=== PATIENT | male | born 1945 | race Caucasian/White ===

== ENCOUNTER 2016-09-27 03:10 | Emergency (ER) | payer MEDICARE, OTHER ==
[~2016-09-27] VITALS: Ht 177.8 cm; Wt 99.0 kg
[2016-09-27 03:20] VITALS: BP 173/99; PULSE 56; RESP 20; TEMP 97.7; O2SAT 98
[2016-09-27] MEDS ORDERED: SODIUM CHLOR 0.9% 1000 ML INJ 1,000 ML IV SCH (03:31)
[2016-09-27] MEDS ORDERED: CHOL1CHW5 CHEW (03:33)
[2016-09-27] MEDS ORDERED: LOSA25TA PO (03:33)
[2016-09-27] MEDS ORDERED: ATOR40TA16 PO (03:33)
[2016-09-27] MEDS ORDERED: DOFE125 PO (03:33)
[2016-09-27] MEDS ORDERED: PRAD150C PO (03:33)
[2016-09-27] MEDS ORDERED: METO25TA3 PO (03:33)
[2016-09-27] MEDS ORDERED: ZOLP12.5 PO (03:33)
[2016-09-27] MEDS ORDERED: OMEP40CA2 PO (03:33)
[2016-09-27] MEDS ORDERED: DIGO0.12 PO (03:33)
[2016-09-27] MEDS ORDERED: VITA10002 PO (03:33)
[2016-09-27 03:34] VITALS: BP 173/99; PULSE 56; RESP 18; TEMP 97.7; O2SAT 98
--- NOTE | 2016-09-27 03:35 | PD ---
HPI Chief Complaint: Flank/Kidney Pain Time Seen by Provider: 03:28 Travel History International Travel<30 days: No Contact w/Intl Traveler<30days: No History of Present Illness HPI 71yo M with PMH of afib presents to the ED with c/o left flank pain since 11pm tonight. States pain is sharp, constant, radiates down left lower abdomen. + NBNB vomiting. +Dysuria. Denies any fever, chest pain, sob, hematuria, testicular pain or penile discharge. Denies history of kidney stones. PFSH Social History Tobacco Use: No Allergies-Medications (Allergen,Severity, Reaction): Coded Allergies: No Known Allergies (Unverified , 09/27/16) Reported Meds & Prescriptions Reported Meds & Active Scripts Active Zofran Odt (Ondansetron Odt) 4 Mg Tab 4 Mg SL Q8HR PRN Flomax (Tamsulosin HCl) 0.4 Mg Cap 0.4 Mg PO HS Percocet (Oxycodone-Acetaminophen) 5-325 mg Tab 1 Tab PO Q6H PRN Reported Vitamin D3 (Cholecalciferol) 2,000 Unit Chew 2,000 Units CHEW DAILY Losartan (Losartan Potassium) 25 Mg Tab 25 Mg PO DAILY Atorvastatin (Atorvastatin Calcium) 40 Mg Tab 40 Mg PO HS Zolpidem ER (Zolpidem Tartrate) 12.5 Mg Tab 12.5 Mg PO HS PRN Tikosyn (Dofetilide) 125 Mcg Cap 125 Mcg PO DAILY For Creatinine Clearance 20-39 mL/min Omeprazole 40 Mg Cap 40 Mg PO DAILY Vitamin B-12 (Cyanocobalamin) 1,000 Mcg Tab 1,000 Mcg PO DAILY Digoxin 0.125 Mg Tab 0.625 Mg PO DAILY Metoprolol Tartrate 25 Mg Tab 25 Mg PO BID Pradaxa (Dabigatran) 150 Mg Cap 150 Mg PO BID Review of Systems Except as stated in HPI: all other systems reviewed are Neg Physical Exam Narrative GENERAL: 71yo M in moderate distress. SKIN: Focused skin assessment warm/dry. HEAD: Atraumatic. Normocephalic. CARDIOVASCULAR: Regular rate and rhythm. No murmur appreciated. RESPIRATORY: No accessory muscle use. Clear to auscultation. Breath sounds equal bilaterally. GASTROINTESTINAL: Abdomen soft, +TTP LLQ. +TTP left flank. No rebound tenderness or guarding. BACK: MUSCULOSKELETAL: No obvious deformities. No clubbing. No cyanosis. No edema. NEUROLOGICAL: Awake and alert. No obvious cranial nerve deficits. Motor grossly within normal limits. Normal speech. PSYCHIATRIC: Appropriate mood and affect; insight and judgment normal. Data Data Last Documented VS Vital Signs Date Time Temp Pulse Resp B/P Pulse Ox O2 Delivery O2 Flow Rate FiO2 09/27/16 05:19 62 18 98 09/27/16 05:18 146/84 Room Air 09/27/16 03:34 97.7 Orders Complete Blood Count With Diff (09/27/16 03:31) Comprehensive Metabolic Panel (09/27/16 03:31) Lipase (09/27/16 03:31) Prothrombin Time / Inr (Pt) (09/27/16 03:31) Act Partial Throm Time (Ptt) (09/27/16 03:31) Urinalysis - C+S If Indicated (09/27/16 03:31) Ct Abd/Pel W/O Iv Contrast (09/27/16 03:31) Iv Access Insert/Monitor (09/27/16 03:31) Ecg Monitoring (09/27/16 03:31) Oximetry (09/27/16 03:31) Ondansetron Inj (Zofran Inj) (09/27/16 03:45) Sodium Chlor 0.9% 1000 Ml Inj (Ns 1000 M (09/27/16 03:31) Sodium Chloride 0.9% Flush (Ns Flush) (09/27/16 03:45) Ketorolac Inj (Toradol Inj) (09/27/16 03:45) Morphine Inj (Morphine Inj) (09/27/16 04:15) Labs Laboratory Tests Test 09/27/16 09/27/16 03:45 04:00 Urine Collection Type Urine Color YELLOW Urine Turbidity CLEAR Urine pH 5.5 Urine Specific [place] 1.026 Urine Protein 30 mg/dL Urine Glucose (UA) NEG mg/dL Urine Ketones TRACE mg/dL Urine Occult Blood LARGE Urine Nitrite NEG Urine Bilirubin NEG Urine Leukocyte Esterase NEG Urine RBC 15-19 /hpf Urine WBC 0-2 /hpf Urine Squamous Epithelial 0-5 /hpf Cells Urine Bacteria OCC /hpf Urine Mucus MOD /lpf Microscopic Urinalysis Comment CULT NOT INDICATED White Blood Count 8.1 TH/MM3 Red Blood Count 4.72 MIL/MM3 Hemoglobin 14.8 GM/DL Hematocrit 45.2 % Mean Corpuscular Volume 95.8 FL Mean Corpuscular Hemoglobin 31.5 PG Mean Corpuscular Hemoglobin 32.8 % Concent Red Cell Distribution Width 12.9 % Platelet Count 193 TH/MM3 Mean Platelet Volume 8.4 FL Neutrophils (%) (Auto) 80.7 % Lymphocytes (%) (Auto) 10.6 % Monocytes (%) (Auto) 5.6 % Eosinophils (%) (Auto) 2.2 % Basophils (%) (Auto) 0.9 % Neutrophils # (Auto) 6.4 TH/MM3 Lymphocytes # (Auto) 0.9 TH/MM3 Monocytes # (Auto) 0.5 TH/MM3 Eosinophils # (Auto) 0.2 TH/MM3 Basophils # (Auto) 0.1 TH/MM3 CBC Comment DIFF FINAL Differential Comment Prothrombin Time 11.1 SEC Prothromb Time International 1.0 RATIO Ratio Activated Partial 23.5 SEC Thromboplast Time Sodium Level 143 MEQ/L Potassium Level 4.0 MEQ/L Chloride Level 108 MEQ/L Carbon Dioxide Level 20.3 MEQ/L Anion Gap 15 MEQ/L Blood Urea Nitrogen 16 MG/DL Creatinine 1.10 MG/DL Estimat Glomerular Filtration 66 ML/MIN Rate Random Glucose 154 MG/DL Calcium Level 8.6 MG/DL Total Bilirubin 0.4 MG/DL Aspartate Amino Transf 21 U/L (AST/SGOT) Alanine Aminotransferase 30 U/L (ALT/SGPT) Alkaline Phosphatase 73 U/L Total Protein 7.4 GM/DL Albumin 3.8 GM/DL Lipase 113 U/L [facility] Medical Decision Making Medical Screen Exam Complete: Yes Emergency Medical Condition: Yes Interpretation(s) Last Impressions Abdomen/Pelvis CT 09/27/16 0331 Signed Impressions: Service Date/Time: Tuesday, September 27, 2016 03:35 - CONCLUSION: 1. 5 mm left ureterovesical junction stone with mild left hydronephrosis Marek Wright MD Differential Diagnosis Nephrolithiasis vs. pyelonephritis vs. diverticulitis Narrative Course 71yo M with symptoms consistent with nephrolithiasis. Labs reviewed, no leukocytosis. Creatinine normal at 1.10. Lipase normal. UA showed large blood. No leukocyte and no nitrite. Culture not indicated. CTa/p showed 5mm left ureterovesicular junction stone with mild left hydronephrosis. VS stable. Pt given toradol 30mg and morphine 6mg IV and pain is controlled. Zofran and IVF was also given and pt is no longer nauseous. Pt is to follow up with urology today. Return precautions given. Diagnosis Primary Impression: Nephrolithiasis Referrals: Geoff Francisco MD 1 day Left 5mm UVJ stone with mild hydro Patient Instructions: General Instructions Departure Forms: Tests/Procedures Additional Instructions: Please follow up with urology today. Return to the ED if symptoms worsen. Med/Other Pt SpecificInfo: Prescription(s) given Scripts Ondansetron Odt (Zofran Odt)4 Mg Tab4 Mg SL Q8HR PRN (Nausea/Vomiting) #6 TAB Ref 0 Prov:Rosy Jimenez DO 09/27/16 Tamsulosin (Flomax)0.4 Mg Cap0.4 Mg PO HS #6 CAP Ref 0 Prov:Rosy Jimenez DO 09/27/16 Oxycodone-Acetaminophen (Percocet)5-325 mg Tab1 Tab PO Q6H PRN (PAIN) #7 TAB Ref 0 Prov:Rosy Jimenez DO 09/27/16 Disposition: 01 DISCHARGE HOME Condition: Stable Rosy Jimenez DO September 27, 2016 03:35
[2016-09-27 03:37] VITALS: RESP 18; O2SAT 98
[2016-09-27] MEDS ORDERED: SODIUM CHLORIDE 0.9% FLUSH 10 ML FLUSH IV FLUSH PRN (03:45)
[2016-09-27] MEDS ORDERED: KETOROLAC TROMETHAMINE 30 MG/ML (IVP) VIAL IVP ONE (03:45)
[2016-09-27] MEDS ORDERED: ONDANSETRON HCL 4 MG/2 ML VIAL IVP ONE (03:45)
[2016-09-27 04:09] LABS: AUTOMATED NEUTROPHIL # 6.4 TH/MM3 (1.8-7.7); BASOPHIL # 0.1 TH/MM3 (0-0.2); BASOPHIL % 0.9 % (0.0-2.0); EOSINOPHIL # 0.2 TH/MM3 (0-0.4); EOSINOPHIL % 2.2 % (0.0-4.0); HEMATOCRIT 45.2 % (39.0-51.0); HEMO FLAGS DIFF FINAL; LYMPH % 10.6 % (9.0-44.0); LYMPHOCYTE # 0.9 TH/MM3 (1.0-4.8); MEAN CELL VOLUME 95.8 FL (80.0-100.0); MEAN CORPUSCULAR HEMOGLOBIN 31.5 PG (27.0-34.0); MEAN CORPUSCULAR HGB CONC 32.8 % (32.0-36.0); MONO % 5.6 % (0.0-8.0); NEUT % 80.7 % (16.0-70.0); PLATELET COUNT 193 TH/MM3 (150-450); RED BLOOD COUNT 4.72 MIL/MM3 (4.50-5.90); RED CELL DISTRIBUTION WIDTH 12.9 % (11.6-17.2); WHITE BLOOD COUNT 8.1 TH/MM3 (4.0-11.0)
[2016-09-27 04:11] LABS: BLOOD, URINE LARGE (NEG); GLUCOSE,URINE NEG (NEG); KETONE, URINE TRACE mg/dL (NEG); NITRITE,URINE NEG (NEG); PH, URINE 5.5 (5.0-8.5)
[2016-09-27] MEDS ORDERED: MORPHINE SULFATE 8 MG/ML INJ IV PUSH ONE (04:15)
[2016-09-27 04:20] VITALS: BP 142/88; PULSE 64; RESP 18; O2SAT 97
--- NOTE | 2016-09-27 04:24 | RADHPO ---
EXAM DATE/TIME: 09/27/2016 03:35 [facility] COMPARISON: No previous studies available for comparison. INDICATIONS : Left flank pain. ORAL CONTRAST: No oral contrast ingested. RADIATION DOSE: 23.93 CTDIvol (mGy) MEDICAL HISTORY : Hypertension. Cerebrovascular disease. SURGICAL HISTORY : Cholecystectomy. ENCOUNTER: Initial ACUITY: 1 day PAIN SCALE: 10/10 LOCATION: Left flank TECHNIQUE: Volumetric scanning of the abdomen and pelvis was performed. Using automated exposure control and ad justment of the mA and/or kV according to patient size, radiation dose was kept as low as reasonably achievable to obtain optimal diagnostic quality images. FINDINGS: Examination of the lung bases demonstrates no abnormality. No pleural fluid is identified. No pulmona ry nodules are present. Calcified granuloma is present in the right lung. The liver and spleen are no rmal in size and no focal defects are identified. The gallbladder is absent. The pancreas demonstrate s normal contour without evidence of mass or ductal dilatation. The adrenal glands are unremarkable. The right kidney is unremarkable. There is a 5 mm stone at the left ureterovesical junction with mild left hydronephrosis Examination of the pelvis demonstrates no evidence of free fluid or pelvic mass. No abnormally enlarg ed inguinal or retroperitoneal lymph nodes are present. The bladder is unremarkable. CONCLUSION: 1. 5 mm left ureterovesical junction stone with mild left hydronephrosis Marek Wright MD on September 27, 2016 at 4:17 Board Certified Radiologist. This report was verified electronically.
[2016-09-27 04:26] LABS: URINE COLOR YELLOW (YELLW/STRAW)
[2016-09-27 04:27] LABS: CHLORIDE 108 MEQ/L (98-107); SODIUM (NA) 143 MEQ/L (136-145)
[2016-09-27 04:28] LABS: MUCUS URINE MOD /lpf (OCC); RBC, URINE 15-19 /hpf (0-3)
[2016-09-27 04:29] LABS: SQUAMOUS EPITHELIAL CELL URINE 0-5 /hpf (0-5)
[2016-09-27 04:30] LABS: WBC, URINE 0-2 /hpf (0-5)
[2016-09-27 04:30] LABS: ANION GAP 15 MEQ/L (5-15); BICARBONATE 20.3 MEQ/L (21.0-32.0)
[2016-09-27 04:31] LABS: APTT (PATIENT) 23.5 SEC (24.3-30.1); BLOOD UREA NITROGEN 16 MG/DL (7-18); PROTHROMBIN TIME - PATIENT 11.1 SEC (9.8-11.6)
[2016-09-27 04:32] LABS: BACTERIA, URINE OCC /hpf; COMMENT (UR) CULT NOT INDICATED; CULTURE IF INDICATED CULT NOT INDICATED
[2016-09-27 04:33] LABS: ALT (GPT) 30 U/L (12-78); AST (GOT) 21 U/L (15-37); GLOMERULAR FILTRATION RATE 66 ML/MIN (>89)
[2016-09-27 04:35] LABS: TOTAL BILIRUBIN ADULT 0.4 MG/DL (0.2-1.0)
[2016-09-27 04:36] LABS: ALKALINE PHOSPHATASE 73 U/L (45-117)
[2016-09-27] MEDS ORDERED: PERC5TAB12 PO (04:47)
[2016-09-27] MEDS ORDERED: TAMS5CAP PO (04:47)
[2016-09-27] MEDS ORDERED: ZOFR4TAB3 SL (04:52)
[2016-09-27 05:18] VITALS: BP 146/84; PULSE 60; RESP 18; O2SAT 98
== END 2016-09-27 05:20 | disposition home or self-care (01) ==
LOC: PHED 03:10
DX: N13.2 Hydronephrosis with renal and ureteral calculous obstruction (principal)
CPT/HCPCS: 74176; 80053; 81001; 83690; 85025; 85610; 85730; 96361; 96374; 96375; 99284; J1885; J2270; J2405; J7030

== ENCOUNTER 2016-10-02 08:52 | Emergency (ER) | payer MEDICARE, OTHER ==
[~2016-10-02] VITALS: Ht 177.8 cm; Wt 97.2 kg
[~2016-10-02 08:52] MED LIST: ATOR40TA16 PO; CHOL1CHW5 CHEW; DIGO0.12 PO; DOFE125 PO; LOSA25TA PO; METO25TA3 PO; OMEP40CA2 PO; PERC5TAB12 PO; PRAD150C PO; TAMS5CAP PO; VITA10002 PO; ZOFR4TAB3 SL; ZOLP12.5 PO
[2016-10-02 08:53] VITALS: BP 162/80; PULSE 76; RESP 20; TEMP 97.8; O2SAT 98
[2016-10-02] MEDS ORDERED: SODIUM CHLOR 0.9% 1000 ML INJ 1,000 ML IV ONE (09:30)
--- NOTE | 2016-10-02 09:45 | PD ---
HPI Chief Complaint: Complaint Time Seen by Provider: 09:20 Travel History International Travel<30 days: No Contact w/Intl Traveler<30days: No Traveled to known affect area: No History of Present Illness HPI Patient is a 71-year-old male who presents to emergency room with complaints of hematuria which he noticed last night. Patient reports that he has history of kidney stones, reports that he was diagnosed with a 5 mm left-sided kidney stone one week ago. Patient reports that he is seeing Dr. Geoff macias with urology and is scheduled for lithotripsy versus stent placement versus a basket retrieval of kidney stone on Tuesday. Patient reports that last night, he noticed blood in his urine. That he urinated blood again today. Patient here for evaluation of hematuria. Patient reports that throughout the course of his kidney stone which he has been dealing with for the past week, he has not had hematuria. Patient reports that his pain is controlled at this time, he is taking Percocets at home for his pain. Patient currently is not on any antibiotics. Patient reports that he was on Pradaxa as he has history of CVA and PE, patient did stop taking his medications on in preparation for this surgery Tuesday. Patient with no fevers or chills, denies flank pain or abdominal pain. Patient with no other complaints. PFSH Past Medical History Hx Anticoagulant Therapy: Yes Atrial Fibrillation: Yes Heart Rhythm Problems: Yes Cardiac Catheterization: Yes Cardiovascular Problems: Yes High Cholesterol: Yes Cerebrovascular Accident: Yes Coronary Artery Disease: Yes Diminished Hearing: No Gastrointestinal Disorders: Yes GERD: Yes Hypertension: Yes Inguinal Hernia: Yes Musculoskeletal: Yes Past Surgical History Abdominal Surgery: Yes (hernia repair) Cholecystectomy: Yes Social History Alcohol Use: Yes (1oz daily) Tobacco Use: No Substance Use: No Allergies-Medications (Allergen,Severity, Reaction): Coded Allergies: No Known Allergies (Unverified , 09/27/16) Reported Meds & Prescriptions Reported Meds & Active Scripts Active Zofran Odt (Ondansetron Odt) 4 Mg Tab 4 Mg SL Q8HR PRN Flomax (Tamsulosin HCl) 0.4 Mg Cap 0.4 Mg PO HS Percocet (Oxycodone-Acetaminophen) 5-325 mg Tab 1 Tab PO Q6H PRN Reported Vitamin D3 (Cholecalciferol) 2,000 Unit Chew 2,000 Units CHEW DAILY Losartan (Losartan Potassium) 25 Mg Tab 25 Mg PO DAILY Atorvastatin (Atorvastatin Calcium) 40 Mg Tab 40 Mg PO HS Zolpidem ER (Zolpidem Tartrate) 12.5 Mg Tab 12.5 Mg PO HS PRN Tikosyn (Dofetilide) 125 Mcg Cap 125 Mcg PO DAILY For Creatinine Clearance 20-39 mL/min Omeprazole 40 Mg Cap 40 Mg PO DAILY Vitamin B-12 (Cyanocobalamin) 1,000 Mcg Tab 1,000 Mcg PO DAILY Digoxin 0.125 Mg Tab 0.625 Mg PO DAILY Metoprolol Tartrate 25 Mg Tab 25 Mg PO BID Pradaxa (Dabigatran) 150 Mg Cap 150 Mg PO BID Review of Systems General / Constitutional: No: Fever Eyes: No: Visual changes HENT: No: Headaches Cardiovascular: No: Chest Pain or Discomfort Respiratory: No: Shortness of Breath Gastrointestinal: No: Abdominal Pain Genitourinary: Positive: Hematuria, No: Dysuria Musculoskeletal: No: Pain Skin: No Rash Neurologic: No: Weakness Psychiatric: No: Depression Endocrine: No: Polydipsia Hematologic/Lymphatic: No: Easy Bruising Physical Exam Narrative GENERAL: No acute distress, nontoxic and evaluation SKIN: Focused skin assessment warm/dry. HEAD: Atraumatic. Normocephalic. EYES: Pupils equal and round. No scleral icterus. No injection or drainage. ENT: No nasal bleeding or discharge. Mucous membranes pink and moist. NECK: Trachea midline. No JVD. CARDIOVASCULAR: Regular rate and rhythm. No murmur appreciated. RESPIRATORY: No accessory muscle use. Clear to auscultation. Breath sounds equal bilaterally. GASTROINTESTINAL: Abdomen soft, non-tender, nondistended. Hepatic and splenic margins not palpable. MUSCULOSKELETAL: No obvious deformities. No clubbing. No cyanosis. No edema. NEUROLOGICAL: Awake and alert. No obvious cranial nerve deficits. Motor grossly within normal limits. Normal speech. PSYCHIATRIC: Appropriate mood and affect; insight and judgment normal. Data Data Last Documented VS Vital Signs Date Time Temp Pulse Resp B/P Pulse Ox O2 Delivery O2 Flow Rate FiO2 10/02/16 08:53 97.8 76 20 162/80 98 Room Air Orders Urinalysis - C+S If Indicated (10/02/16 09:03) Basic Metabolic Panel (Bmp) (10/02/16 09:26) Complete Blood Count With Diff (10/02/16 09:26) Prothrombin Time / Inr (Pt) (10/02/16 09:26) Act Partial Throm Time (Ptt) (10/02/16 09:26) Abdomen, Kub Only (10/02/16 09:26) Sodium Chlor 0.9% 1000 Ml Inj (Ns 1000 M (10/02/16 09:30) Urine Culture (10/02/16 09:30) Ceftriaxone Inj (Rocephin Inj) (10/02/16 10:45) Ct Abd/Pel W/O Iv Contrast (10/02/16 10:40) Labs Laboratory Tests Test 10/02/16 09:30 White Blood Count 5.3 TH/MM3 Red Blood Count 3.67 MIL/MM3 Hemoglobin 12.0 GM/DL Hematocrit 35.5 % Mean Corpuscular Volume 96.6 FL Mean Corpuscular Hemoglobin 32.7 PG Mean Corpuscular Hemoglobin 33.9 % Concent Red Cell Distribution Width 13.5 % Platelet Count 171 TH/MM3 Mean Platelet Volume 8.7 FL Neutrophils (%) (Auto) 65.1 % Lymphocytes (%) (Auto) 12.6 % Monocytes (%) (Auto) 15.7 % Eosinophils (%) (Auto) 6.2 % Basophils (%) (Auto) 0.4 % Neutrophils # (Auto) 3.5 TH/MM3 Lymphocytes # (Auto) 0.7 TH/MM3 Monocytes # (Auto) 0.8 TH/MM3 Eosinophils # (Auto) 0.3 TH/MM3 Basophils # (Auto) 0.0 TH/MM3 CBC Comment DIFF FINAL Differential Comment Prothrombin Time 11.2 SEC Prothromb Time International 1.0 RATIO Ratio Activated Partial 27.9 SEC Thromboplast Time Urine Color LIGHT-RED Urine Turbidity CLEAR Urine pH 6.0 Urine Specific [place] 1.027 Urine Protein 300 mg/dL Urine Glucose (UA) NEG mg/dL Urine Ketones 10 mg/dL Urine Occult Blood LARGE Urine Nitrite NEG Urine Bilirubin NEG Urine Urobilinogen 2.0 MG/DL Urine Leukocyte Esterase SMALL Urine RBC /hpf Urine WBC /hpf Urine WBC Clumps FEW Urine Mucus FEW /lpf Urine Yeast (Budding) FEW Microscopic Urinalysis Comment CULTURE INDICATED Sodium Level 140 MEQ/L Potassium Level 4.1 MEQ/L Chloride Level 108 MEQ/L Carbon Dioxide Level 24.0 MEQ/L Anion Gap 8 MEQ/L Blood Urea Nitrogen 18 MG/DL Creatinine 1.59 MG/DL Estimat Glomerular Filtration 43 ML/MIN Rate Random Glucose 113 MG/DL Calcium Level 8.5 MG/DL MDM Medical Decision Making Medical Screen Exam Complete: Yes Emergency Medical Condition: Yes Interpretation(s) Vital Signs Date Time Temp Pulse Resp B/P Pulse Ox O2 Delivery O2 Flow Rate FiO2 10/02/16 08:53 97.8 76 20 162/80 98 Room Air Differential Diagnosis Hematuria could be secondary to UTI, kidney stone, anemia Narrative Course Patient is a 71 year old male who presents to ER with c/o of hematuria. Patient was diagnosed with 5mm kidney stone last week - he is scheduled for litrotripsy vs basket retrieval vs stent on tuesday. Patient's only c/o is hematuria. Plan to obtain basic labs and ua. KUB ordered to evaluate stone. Vital Signs Date Time Temp Pulse Resp B/P Pulse Ox O2 Delivery O2 Flow Rate FiO2 10/02/16 08:53 97.8 76 20 162/80 98 Room Air Laboratory Tests Test 10/02/16 09:30 White Blood Count 5.3 TH/MM3 (4.0-11.0) Red Blood Count 3.67 MIL/MM3 (4.50-5.90) Hemoglobin 12.0 GM/DL (13.0-17.0) Hematocrit 35.5 % (39.0-51.0) Mean Corpuscular Volume 96.6 FL (80.0-100.0) Mean Corpuscular Hemoglobin 32.7 PG (27.0-34.0) Mean Corpuscular Hemoglobin 33.9 % Concent (32.0-36.0) Red Cell Distribution Width 13.5 % (11.6-17.2) Platelet Count 171 TH/MM3 (150-450) Mean Platelet Volume 8.7 FL (7.0-11.0) Neutrophils (%) (Auto) 65.1 % (16.0-70.0) Lymphocytes (%) (Auto) 12.6 % (9.0-44.0) Monocytes (%) (Auto) 15.7 % (0.0-8.0) Eosinophils (%) (Auto) 6.2 % (0.0-4.0) Basophils (%) (Auto) 0.4 % (0.0-2.0) Neutrophils # (Auto) 3.5 TH/MM3 (1.8-7.7) Lymphocytes # (Auto) 0.7 TH/MM3 (1.0-4.8) Monocytes # (Auto) 0.8 TH/MM3 (0-0.9) Eosinophils # (Auto) 0.3 TH/MM3 (0-0.4) Basophils # (Auto) 0.0 TH/MM3 (0-0.2) CBC Comment DIFF FINAL Differential Comment Prothrombin Time 11.2 SEC (9.8-11.6) Prothromb Time International 1.0 RATIO Ratio Activated Partial 27.9 SEC Thromboplast Time (24.3-30.1) Urine Color LIGHT-RED (YELLW/STRAW) Urine Turbidity CLEAR (CLEAR) Urine pH 6.0 (5.0-8.5) Urine Specific [place] 1.027 (1.002-1.035) Urine Protein 300 mg/dL (NEG-TRACE) Urine Glucose (UA) NEG mg/dL (NEG) Urine Ketones 10 mg/dL (NEG) Urine Occult Blood LARGE (NEG) Urine Nitrite NEG (NEG) Urine Bilirubin NEG (NEG) Urine Urobilinogen 2.0 MG/DL (LESS THAN 2.0) Urine Leukocyte Esterase SMALL (NEG) Urine RBC /hpf (0-3) Urine WBC /hpf (0-5) Urine WBC Clumps FEW (NONE) Urine Mucus FEW /lpf (OCC) Urine Yeast (Budding) FEW (NONE) Microscopic Urinalysis Comment CULTURE INDICATED Sodium Level 140 MEQ/L (136-145) Potassium Level 4.1 MEQ/L (3.5-5.1) Chloride Level 108 MEQ/L (98-107) Carbon Dioxide Level 24.0 MEQ/L (21.0-32.0) Anion Gap 8 MEQ/L (5-15) Blood Urea Nitrogen 18 MG/DL (7-18) Creatinine 1.59 MG/DL (0.60-1.30) Estimat Glomerular Filtration 43 ML/MIN (>89) Rate Random Glucose 113 MG/DL (74-106) Calcium Level 8.5 MG/DL (8.5-10.1) Last Impressions Abdomen/Pelvis CT 10/02/16 1040 Signed Impressions: Service Date/Time: Sunday, October 02, 2016 11:11 - CONCLUSION: 1. The previously noted distal left ureteral calculus at the level of the ureterovesicular junction is no longer present and has passed. 2. Inflammatory change is again noted surrounding the left kidney which remains prominent with mild to moderate hydronephrosis. No renal or ureteral calculi is now identified. Tha Bird MD Abdomen X-Ray 10/02/16 0926 Signed Impressions: Service Date/Time: Sunday, October 02, 2016 09:36 - CONCLUSION: 1. No renal or ureteral calculi. 2. Mildly nonspecific, nonobstructive bowel gas pattern which could represent a mild ileus. 3. Status post cholecystectomy. Tha Bird MD Patient was reevaluated, he is feeling much better at this time. Patient with resolution of flank pain. Patient reports that he just urinated, reports that his urine is now clear. Patient with most likely passed kidney stone at this time, patient does have a UTI, Patient will follow up with cultures from today. Patient will return to ER as needed. A copy of his studies were given to him and were reviewed in detail. Diagnosis Primary Impression: Hematuria Additional Impressions: UTI (urinary tract infection) Qualified Code: N30.01 - Acute cystitis with hematuria Hydronephrosis Qualified Code: N13.30 - Hydronephrosis, unspecified hydronephrosis type Renal insufficiency Patient Instructions: General Instructions Additional Instructions: Please return to ER as needed Please follow up with your urologist Please bring a copy of your discharge paper work and studies to your doctor's office Please drink plenty of fluids Please take all antibiotics as prescribed Follow up with cultures from today Med/Other Pt SpecificInfo: Prescription(s) given Scripts Nitrofurantoin Monohydrate Macrocrystals (Macrobid)100 Mg [id number] Mg PO BID 10 Days Ref 0 Prov:Charlotte Soto DO 10/02/16 Disposition: 01 DISCHARGE HOME Condition: Stable Charlotte Soto DO October 02, 2016 09:45
--- NOTE | 2016-10-02 09:47 | RADRPT ---
EXAM DATE/TIME: 10/02/2016 09:36 [facility] COMPARISON: No previous studies available for comparison. INDICATIONS : Left sided abdominal pain, Hematuria MEDICAL HISTORY : Hypertension. Cerebrovascular disease. SURGICAL HISTORY : Cholecystectomy. ENCOUNTER: Initial ACUITY: 4 - 6 days PAIN SCORE: 10/10 LOCATION: Left flank FINDINGS: 2 AP supine views of the abdomen were obtained. There are surgical clips in the right upper quadrant consistent with prior cholecystectomy. There are several loops of nondilated air-containing small bow el with gas and stool noted segments in the colon. There is no free air or mass effect. There are deg enerative disc changes in the lumbar spine. There are no renal or ureteral calculi. CONCLUSION: 1. No renal or ureteral calculi. 2. Mildly nonspecific, nonobstructive bowel gas pattern which could represent a mild ileus. 3. Status post cholecystectomy. Tha Bird MD on October 02, 2016 at 9:44 Board Certified Radiologist. This report was verified electronically.
[2016-10-02 10:13] LABS: AUTOMATED NEUTROPHIL # 3.5 TH/MM3 (1.8-7.7); BASOPHIL % 0.4 % (0.0-2.0); EOSINOPHIL # 0.3 TH/MM3 (0-0.4); EOSINOPHIL % 6.2 % (0.0-4.0); HEMATOCRIT 35.5 % (39.0-51.0); HEMO FLAGS DIFF FINAL; LYMPH % 12.6 % (9.0-44.0); LYMPHOCYTE # 0.7 TH/MM3 (1.0-4.8); MEAN CELL VOLUME 96.6 FL (80.0-100.0); MEAN CORPUSCULAR HEMOGLOBIN 32.7 PG (27.0-34.0); MEAN CORPUSCULAR HGB CONC 33.9 % (32.0-36.0); MONO % 15.7 % (0.0-8.0); NEUT % 65.1 % (16.0-70.0); PLATELET COUNT 171 TH/MM3 (150-450); RED BLOOD COUNT 3.67 MIL/MM3 (4.50-5.90); RED CELL DISTRIBUTION WIDTH 13.5 % (11.6-17.2); WHITE BLOOD COUNT 5.3 TH/MM3 (4.0-11.0)
[2016-10-02 10:20] LABS: APTT (PATIENT) 27.9 SEC (24.3-30.1); PROTHROMBIN TIME - PATIENT 11.2 SEC (9.8-11.6)
[2016-10-02 10:30] LABS: BLOOD, URINE LARGE (NEG); COMMENT (UR) CULTURE INDICATED; CULTURE IF INDICATED CULTURE INDICATED; GLUCOSE,URINE NEG (NEG); KETONE, URINE 10 mg/dL (NEG); MUCUS URINE FEW /lpf (OCC); NITRITE,URINE NEG (NEG)
[2016-10-02 10:31] LABS: URINE COLOR LIGHT-RED (YELLW/STRAW)
[2016-10-02 10:42] LABS: POTASSIUM 4.1 MEQ/L (3.5-5.1)
[2016-10-02] MEDS ORDERED: cefTRIAXone INJ 1,000 MG in SODIUM CHLORIDE 0.9% INJ 100 ML IV ONE (10:45)
--- NOTE | 2016-10-02 11:27 | RADRPT ---
EXAM DATE/TIME: 10/02/2016 11:11 [facility] COMPARISON: CT ABDOMEN & PELVIS W/O CONTRAST, September 27, 2016, 3:35. INDICATIONS : Left flank pain. A left distal ureteral calculus and hydronephrosis are present on prior CT 5 days ag o. ORAL CONTRAST: No oral contrast ingested. RADIATION DOSE: 8.74 CTDIvol (mGy) MEDICAL HISTORY : Renal calculi. SURGICAL HISTORY : Umbilical hernia repair. ENCOUNTER: Initial ACUITY: 1 day PAIN SCALE: 5/10 LOCATION: Left flank TECHNIQUE: Volumetric scanning of the abdomen and pelvis was performed. Using automated exposure control and ad justment of the mA and/or kV according to patient size, radiation dose was kept as low as reasonably achievable to obtain optimal diagnostic quality images. FINDINGS: LOWER LUNGS: The visualized lower lungs are clear. LIVER: Homogeneous density without lesion. There is no dilation of the biliary tree. No calcified gallston es. SPLEEN: Normal size without lesion. PANCREAS: Within normal limits. KIDNEYS: The right kidney remains unremarkable in appearance with no renal calculi or obstruction. The left ki dney is mildly prominent with surrounding inflammatory change and mild to moderate hydronephrosis wit hout significant change. There is inflammatory change surrounding the ureter with areas of dilatation again noted. The previously noted distal ureteral calculus is no longer present. No visualized calcu shamir is not noted. ADRENAL GLANDS: Within normal limits. VASCULAR: There is no aortic aneurysm. BOWEL/MESENTERY: The stomach, small bowel, and colon demonstrate no acute abnormality. There is no free intraperitone al air or fluid. ABDOMINAL WALL: Within normal limits. RETROPERITONEUM: There is no lymphadenopathy. BLADDER: No wall thickening or mass. REPRODUCTIVE: Within normal limits. INGUINAL: There is no lymphadenopathy or hernia. MUSCULOSKELETAL: Within normal limits for patient age. CONCLUSION: 1. The previously noted distal left ureteral calculus at the level of the ureterovesicular junction i s no longer present and has passed. 2. Inflammatory change is again noted surrounding the left kidney which remains prominent with mild t o moderate hydronephrosis. No renal or ureteral calculi is now identified. Tha Bird MD on October 02, 2016 at 11:19 Board Certified Radiologist. This report was verified electronically.
[2016-10-02] MEDS ORDERED: MACR100C2 PO (11:50)
[2016-10-02 12:05] VITALS: BP 121/71
== END 2016-10-02 12:06 | disposition home or self-care (01) ==
LOC: NEPE 08:52
DX: R31.9 Hematuria, unspecified (principal); N39.0 Urinary tract infection, site not specified; N13.2 Hydronephrosis with renal and ureteral calculous obstruction; N28.9 Disorder of kidney and ureter, unspecified; I48.91 Unspecified atrial fibrillation; I10 Essential (primary) hypertension; Z79.01 Long term (current) use of anticoagulants
CPT/HCPCS: 74000; 74176; 80048; 81001; 85025; 85610; 85730; 87086; 96361; 96365; 99284; J0696; J7030